=== PATIENT | male | born 1975 | race Caucasian/White ===

== ENCOUNTER 2022-05-25 08:00 | Outpatient (CLI) | payer MEDICARE ==
[2022-05-25 20:59] LABS: BASOPHILS # (AUTO) 0.1 10^3/uL (0.0-0.1); EOSINOPHILS # (AUTO) 0.2 10^3/uL (0.0-0.7); EOSINOPHILS % (AUTO) 3.3 %; HCT - HEMATOCRIT 44.9 % (42.0-52.0); HGB - HEMOGLOBIN 16.2 g/dL (14.0-18.0); LYMPHOCYTES # (AUTO) 2.2 10^3/uL (1.5-3.5); LYMPHOCYTES % (AUTO) 35.1 %; MEAN CORPUSCULAR HEMOGLOBIN 32.5 pg (27.0-31.0); MEAN CORPUSCULAR HGB CONC 36.1 g/dL (32.0-36.0); MEAN CORPUSCULAR VOLUME 90.2 fL (80.0-94.0); MONOCYTES # (AUTO) 0.4 10^3/uL (0.0-1.0); NEUTROPHILS # (AUTO) 3.3 10^3/uL (1.5-6.6); NEUTROPHILS % (AUTO) 53.1 %; PLT - PLATELET COUNT 239 10^3/uL (130-450); RED BLOOD COUNT 4.98 10^6/uL (4.70-6.10); RED CELL DISTRIBUTION WIDTH 11.6 % (12.0-15.0); WHITE BLOOD COUNT 6.3 x10^3/uL (4.8-10.8)
[2022-05-25 21:12] LABS: ALBUMIN 4.5 g/dL (3.2-5.5); ALBUMIN/GLOBULIN RATIO 1.2 (1.0-2.2); BILIRUBIN,TOTAL 0.5 mg/dL (0.2-1.0); CALCIUM 9.5 mg/dL (8.5-10.3); CREATININE 0.6 mg/dL (0.6-1.2); POTASSIUM 4.2 mmol/L (3.5-5.0); TOTAL PROTEIN 8.3 g/dL (6.7-8.2)
[2022-05-25 21:32] LABS: PARTIAL THROMBOPLASTIN TIME 26.6 secs (24.9-33.3)
[2022-05-25 21:39] LABS: INR 0.9 (0.8-1.2); PT - PROTHROMBIN TIME 10.5 secs (9.9-12.6)
== END 2022-05-25 23:59 | disposition home or self-care (01) ==
LOC: LAB.N 08:00
PROVIDERS: ATTEND Nurse Practitioner
DX: I82.4Y2 Acute embolism and thrombosis of unspecified deep veins of left proximal lower extremity (principal)
CPT/HCPCS: 36415; 80053; 85025; 85379; 85610; 85730

== ENCOUNTER 2022-08-21 08:00 | Outpatient (CLI) | payer MEDICARE ==
[2022-08-21 18:03] LABS: HCT - HEMATOCRIT 46.1 % (42.0-52.0); HGB - HEMOGLOBIN 15.8 g/dL (14.0-18.0); MEAN CORPUSCULAR HEMOGLOBIN 31.9 pg (27.0-31.0); MEAN CORPUSCULAR HGB CONC 34.3 g/dL (32.0-36.0); MEAN CORPUSCULAR VOLUME 93.1 fL (80.0-94.0); RED BLOOD COUNT 4.95 10^6/uL (4.70-6.10); RED CELL DISTRIBUTION WIDTH 11.9 % (12.0-15.0); WHITE BLOOD COUNT 5.4 x10^3/uL (4.8-10.8)
[2022-08-21 18:24] LABS: PARTIAL THROMBOPLASTIN TIME 39.4 secs (24.9-33.3)
[2022-08-21 18:29] LABS: CALCIUM 9.4 mg/dL (8.5-10.3); CREATININE 0.7 mg/dL (0.6-1.2); POTASSIUM 4.3 mmol/L (3.5-5.0)
[2022-08-21 18:31] LABS: INR 3.3 (0.8-1.2); PT - PROTHROMBIN TIME 34.1 secs (9.9-12.6)
== END 2022-08-21 23:59 | disposition home or self-care (01) ==
LOC: LAB.N 08:00
PROVIDERS: ATTEND Nurse Practitioner
DX: Z86.718 Personal history of other venous thrombosis and embolism (principal)
CPT/HCPCS: 36415; 80048; 85025; 85027; 85379; 85610; 85730

== ENCOUNTER 2022-09-21 11:44 | Outpatient (CLI) | payer MEDICARE | END 2022-09-21 11:45 | disposition home or self-care (01) | LOC: LAB.N 11:44 | PROVIDERS: ATTEND Nurse Practitioner | DX: Z86.718 Personal history of other venous thrombosis and embolism (principal); Z79.01 Long term (current) use of anticoagulants | CPT/HCPCS: 36415; 85730 ==

== ENCOUNTER 2022-10-22 16:44 | Outpatient (CLI) | payer MEDICARE | END 2022-10-22 16:45 | disposition home or self-care (01) | LOC: LAB.N 16:44 | PROVIDERS: ATTEND Nurse Practitioner | DX: Z53.9 Procedure and treatment not carried out, unspecified reason (principal) | CPT/HCPCS: 36415; 85730 ==

== ENCOUNTER 2022-11-18 08:00 | Outpatient (CLI) | payer MEDICARE | END 2022-11-18 23:59 | disposition home or self-care (01) | LOC: LAB.WCP 08:00 | PROVIDERS: ATTEND Family Medicine | DX: Z79.01 Long term (current) use of anticoagulants (principal); Z86.718 Personal history of other venous thrombosis and embolism ==

== ENCOUNTER 2022-12-09 08:00 | Outpatient (CLI) | payer MEDICARE | END 2022-12-09 23:59 | disposition home or self-care (01) | LOC: LAB.N 08:00 | PROVIDERS: ATTEND Physician Assistant | DX: Z79.01 Long term (current) use of anticoagulants (principal); Z86.718 Personal history of other venous thrombosis and embolism ==

== ENCOUNTER 2023-01-22 08:00 | Outpatient (CLI) | payer MEDICARE | END 2023-01-22 23:59 | disposition home or self-care (01) | LOC: LAB.N 08:00 | PROVIDERS: ATTEND Physician Assistant | DX: Z79.01 Long term (current) use of anticoagulants (principal); Z86.718 Personal history of other venous thrombosis and embolism ==

== ENCOUNTER 2023-03-12 08:00 | Outpatient (CLI) | payer MEDICARE | END 2023-03-12 23:59 | disposition home or self-care (01) | LOC: LAB.N 08:00 | PROVIDERS: ATTEND Physician Assistant | DX: Z79.01 Long term (current) use of anticoagulants (principal); Z86.718 Personal history of other venous thrombosis and embolism ==